=== PATIENT | female | born 1980 | race Hispanic/Latino ===

== ENCOUNTER 2022-03-25 22:26 | Emergency (ER) | payer BC ==
[2022-03-25 23:55] LABS: Absolute Lymphocytes (CBC) 2.8 K/uL (0.7-4.9); Hematocrit 40.5 % (36.0-45.0); Lymphocytes % 21.1 % (15.3-44.8); MCV 85.9 fL (80-100); RBC Red Blood Cell Count 4.72 M/uL (3.86-4.86)
[2022-03-26 00:13] LABS: Albumin 3.6 g/dL (3.4-5.0); Bilirubin Total 0.2 mg/dL (0.2-1.0); Potassium 3.6 mmol/L (3.5-5.1)
[2022-03-26 00:39] LABS: Urine Blood Negative (Negative); Urine Glucose Negative (Negative); Urine Protein Negative (Negative); Urine Specific Gravity 1.015 (1.005-1.030); Urine pH 5.5 (5.0-7.0)
[2022-03-26 00:43] LABS: Urine Specific Gravity/Preg 1.015 (1.005-1.030)
[2022-03-26 01:23] LABS: Urine Bacteria <20 /HPF (<20); Urine RBC <5 /HPF (None Seen)
--- NOTE | 2022-03-26 03:12 | ER ---
Nurse's Notes [facility] Name: Ching Huang Age: 42 yrs Sex: Female : 1980 Arrival Date: 03/25/2022 Time: 22:37 Bed 14 Private MD: Diagnosis: Lower abdominal pain, unspecified;Other bursitis of hip, right hip;Other ovarian cysts-DERMOID RIGHT 3.2 CM Presentation: 03/25 23:13 Chief complaint: Patient states: Pt reports right lower quadrant abdominal pain that bb radiates into right flank with urinary frequency. Coronavirus screen: Vaccine status: Patient reports being unvaccinated. Client denies travel out of the [place] in the last 14 days. Ebola Screen: Patient negative for fever greater than or equal to 101.5 degrees Fahrenheit, and additional compatible Ebola Virus Disease symptoms Patient denies exposure to infectious person. Patient denies travel to an Ebola-affected area in the 21 days before illness onset. Initial Sepsis Screen: Does the patient meet any 2 criteria? No. Patient's initial sepsis screen is negative. Does the patient have a suspected source of infection? No. Patient's initial sepsis screen is negative. Risk Assessment: Do you want to hurt yourself or someone else? Patient reports no desire to harm self or others. Onset of symptoms was March 21, 2022. 23:13 Method Of Arrival: Ambulatory bb 23:13 Acuity: MARIALUISA 3 bb Triage Assessment: 23:15 General: Appears in no apparent distress. Behavior is calm, cooperative. Pain: bb Complains of pain in suprapubic area and right inguinal area Pain radiates to right low back Pain currently is 5 out of 10 on a pain scale. Quality of pain is described as sharp. GI: Reports lower abdominal pain, Patient currently denies constipation, diarrhea, nausea, vomiting. 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 Last tetanus immunization: < 5 years ago. - Social history:: Smoking status: Patient denies any tobacco usage or history of. Screenin/02 01:00 [facility] ED Fall Risk Assessment (Adult) History of falling in the last 3 months, vc1 including since admission No falls in past 3 months (0 pts) Confusion or Disorientation No (0 pts) Intoxicated or Sedated No (0 pts) Impaired Gait No (0 pts) Mobility Assist Device Used No (0 pt) Altered Elimination No (0 pt) Score/Fall Risk Level 0 - 2 = Low Risk Oriented to surroundings, Maintained a safe environment, Educated pt \T\ family on fall prevention, incl call for assistance when getting out of bed. Abuse screen: Denies threats or abuse. Nutritional screening: No deficits noted. Tuberculosis screening: No symptoms or risk factors identified. Assessment: 01:00 Reassessment: No changes from previously documented assessment. Patient and/or family vc1 updated on plan of care and expected duration. Pain level reassessed. 02:00 Reassessment: No changes from previously documented assessment. Patient and/or family vc1 updated on plan of care and expected duration. Pain level reassessed. Patient is alert, oriented x 3, equal unlabored respirations, skin warm/dry/pink. 03:00 Reassessment: No changes from previously documented assessment. Patient and/or family vc1 updated on plan of care and expected duration. Pain level reassessed. Patient is alert, oriented x 3, equal unlabored respirations, skin warm/dry/pink. Vital Signs: 03/25 23:13 BP 142 / 96; Pulse 74; Resp 20; Temp 97.7; Pulse Ox 100% ; Weight 90.72 kg; Height 5 bb ft. 2 in. (157.48 cm); Pain 5/10; 03/26 01:00 BP 118 / 81; Pulse 69; Resp 18; Pulse Ox 100% ; vc1 03:00 BP 126 / 76; Pulse 64; Resp 19; Pulse Ox 100% ; vc1 03/25 23:13 Body Mass Index 36.58 (90.72 kg, 157.48 cm) bb ED Course: 03/25 22:37 Patient arrived in ED. ja2 22:43 [facility]az[facility] Snowden [facility]C [facility]. snw 22:43 Master Funes MD is Attending Physician. snw 23:15 Triage completed. bb 23:15 Arm band placed on left wrist. bb 23:48 Initial lab(s) drawn, by ar, sent to lab. Inserted saline lock: 22 gauge in left mb4 antecubital area, using aseptic technique. Blood collected. 03/26 00:32 Paty Wagner, RN is Primary Nurse. vc1 01:50 CT Abd/Pelvis - IV Contrast Only In Process Unspecified. EDMS 02:00 Patient has correct armband on for positive identification. Bed in low position. Call vc1 light in reach. Pulse ox on. NIBP on. 03:37 No provider procedures requiring assistance completed. IV discontinued, intact, vc1 bleeding controlled, No redness/swelling at site. Pressure dressing applied. Administered Medications: No medications were administered Medication: 03:24 VIS not applicable for this client. vc1 Outcome: 03:12 Discharge ordered by . azeem 03:38 Discharged to home ambulatory. vc1 03:38 Condition: good 03:38 Discharge instructions given to patient, Instructed on discharge instructions, follow up and referral plans. medication usage, Demonstrated understanding of instructions, follow-up care, medications, Prescriptions given X 3. 03:38 Patient left the ED. vc1 Signatures: Dispatcher [employer] EDCT Master Funes MD MD cha Waters, Shelly, LEADERSHIP INTERN-C LEADERSHIP INTERN-Csnw Yadira Gold RN RN Beverly Ferguson 4 Kylee Wren Vanessa, RN RN vc1 Corrections: (The following items were deleted from the chart) 03/25 23:19 23:13 Pulse 74bpm; Resp 20bpm; Pulse Ox 100%; Temp 97.7F; 90.72 kg; Height 5 ft. 2 in.; bb BMI: 36.5; Pain 5/10; bb
--- NOTE | 2022-03-26 03:13 | EDPHYS ---
Physician Documentation [facility] Name: Ching Huang Age: 42 yrs Sex: Female : 1980 Arrival Date: 03/25/2022 Time: 22:37 Bed 14 Private MD: ED Physician Master Funes HPI: 03/26 00:41 This 42 yrs old Female presents to ER via Ambulatory with complaints of snw Abdominal Pain, Low Back Pain. 00:41 The patient presents with abdominal pain right lower quadrant. Onset: The snw symptoms/episode began/occurred acutely, 4 day(s) ago, and became persistent. The symptoms radiate to right back. Associated signs and symptoms: none. The symptoms are described as steady, vague. Severity of pain: At its worst the pain was moderate in the emergency department the pain has improved. The patient has not experienced similar symptoms in the past. over the past 13 weeks pt has had bronchitis twice and asthma exacerbations x 3. 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 Last tetanus immunization: < 5 years ago. - Social history:: Smoking status: Patient denies any tobacco usage or history of. ROS: 03/26 00:39 Constitutional: Negative for fever, chills, and weight loss, Eyes: Negative for injury, snw pain, redness, and discharge, ENT: Negative for injury, pain, and discharge, Neck: Negative for injury, pain, and swelling, Cardiovascular: Negative for chest pain, palpitations, and edema, Respiratory: Negative for shortness of breath, wheezing, and pleuritic chest pain, + dry cough Abdomen/GI: Negative for abdominal pain, nausea, vomiting, diarrhea, and constipation, : Negative for injury, bleeding, discharge, and swelling, +urinary frequency MS/Extremity: Negative for injury and deformity, Skin: Negative for injury, rash, and discoloration, Neuro: Negative for headache, weakness, numbness, tingling, and seizure, Psych: Negative for depression, anxiety, suicide ideation, homicidal ideation, and hallucinations. Abdomen/GI: Positive for abdominal pain. Back: Positive for pain at rest, pain with movement, radiated pain. Exam: 00:38 Constitutional: This is a well developed, well nourished patient who is awake, alert, snw and in no acute distress. Head/Face: Normocephalic, atraumatic. Eyes: Pupils equal round and reactive to light, extra-ocular motions intact. Lids and lashes normal. Conjunctiva and sclera are non-icteric and not injected. Cornea within normal limits. Periorbital areas with no swelling, redness, or edema. ENT: Nares patent. No nasal discharge, no septal abnormalities noted. Tympanic membranes are normal and external auditory canals are clear. Oropharynx with no redness, swelling, or masses, exudates, or evidence of obstruction, uvula midline. Mucous membranes moist. Neck: Trachea midline, no thyromegaly or masses palpated, and no cervical lymphadenopathy. Supple, full range of motion without nuchal rigidity, or vertebral point tenderness. No Meningismus. Chest/axilla: Normal chest wall appearance and motion. Nontender with no deformity. No lesions are appreciated. Cardiovascular: Regular rate and rhythm with a normal S1 and S2. No gallops, murmurs, or rubs. Normal PMI, no JVD. No pulse deficits. Respiratory: Lungs have equal breath sounds bilaterally, clear to auscultation and percussion. No rales, rhonchi or wheezes noted. No increased work of breathing, no retractions or nasal flaring. + dry cough Abdomen/GI: Soft, mildly tender to right inguinal canal, with normal bowel sounds. No distension or tympany. No guarding or rebound. Back: No spinal tenderness. No costovertebral tenderness. Full range of motion. Skin: Warm, dry with normal turgor. Normal color with no rashes, no lesions, and no evidence of cellulitis. MS/ Extremity: Pulses equal, no cyanosis. Neurovascular intact. Full, normal range of motion. Neuro: Awake and alert, GCS 15, oriented to person, place, time, and situation. Cranial nerves II-XII grossly intact. Motor strength 5/5 in all extremities. Sensory grossly intact. Cerebellar exam normal. Normal gait. Psych: Awake, alert, with orientation to person, place and time. Behavior, mood, and affect are within normal limits. Vital Signs: 03/25 23:13 BP 142 / 96; Pulse 74; Resp 20; Temp 97.7; Pulse Ox 100% ; Weight 90.72 kg; Height 5 bb ft. 2 in. (157.48 cm); Pain 5/10; 03/26 01:00 BP 118 / 81; Pulse 69; Resp 18; Pulse Ox 100% ; vc1 03:00 BP 126 / 76; Pulse 64; Resp 19; Pulse Ox 100% ; vc1 03/25 23:13 Body Mass Index 36.58 (90.72 kg, 157.48 cm) bb MDM: 03/25 23:32 Patient medically screened. azeem 03/26 01:28 Differential diagnosis: appendicitis, Inguinal hernia, bursitis of right hip. snw Transition of care: After a detail discussion of the patient's case, care is transferred to Master Funes MD. 03/25 22:44 Order name: CBC with Diff; Complete Time: 00:05 snw 03/25 22:44 Order name: CMP; Complete Time: 00:15 snw 03/25 22:44 Order name: Lipase; Complete Time: 00:15 snw 03/25 22:44 Order name: Urine Microscopic Only; Complete Time: 01:27 snw 03/26 00:39 Order name: Urine Dipstick-Ancillary; Complete Time: 00:42 EDMS 03/26 00:40 Order name: Urine --Ancillary (enter results); Complete Time: 00:51 ds4 03/25 22:44 Order name: IV Saline Lock; Complete Time: 00:32 snw 03/25 22:44 Order name: Labs collected and sent; Complete Time: 00:32 snw 03/25 22:44 Order name: Urine Dipstick-Ancillary (obtain specimen); Complete Time: 00:40 snw 03/26 00:06 Order name: CT Abd/Pelvis - IV Contrast Only snw 03/26 00:06 Order name: Urine Test (obtain specimen); Complete Time: 00:40 snw Administered Medications: No medications were administered Disposition Summary: 03/26/22 03:12 Discharge Ordered Location: Home azeem Condition: Stable azeem Diagnosis - Lower abdominal pain, unspecified azeem - Other bursitis of hip, right hip azeem - Other ovarian cysts - DERMOID RIGHT 3.2 CM azeem Followup: snw - With: Emergency Department - When: As needed - Reason: Worsening of condition Followup: snw - With: Private Physician - When: 2 - 3 days - Reason: Recheck today's complaints, Continuance of care, Re-evaluation by your physician Discharge Instructions: - Ovarian Cyst azeem - Ovarian Cyst, [id number] azeem - Discharge Summary Sheet snw - Abdominal Pain, Adult snw - Bursitis snw - Gas and Gas Pains, Pediatric snw Forms: - Medication Reconciliation Form [facility] - Thank You Letter azeem - Antibiotic Education azeem - Prescription Opioid Use [facility] Prescriptions: - Mobic 7.5 mg Oral Tablet - take 1 tablet by ORAL route once daily take with food; 20 tablet; Refills: 0, snw Product Selection Permitted - orphenadrine citrate 100 mg Oral Tablet Sustained Release - take 1 tablet by ORAL route 2 times per day As needed; 20 tablet; Refills: 0, snw Product Selection Permitted - Tylenol-Codeine #3 300 mg-30 mg Oral - take 2 tablet by ORAL route every 6 hours; 15 tablet; Refills: 0, Product azeem Selection Permitted Signatures: Dispatcher [employer] Master Vallecillo MD MD cha Waters, Shelly, BURIAL AGENT-C BURIAL AGENT-Rejiw Yadira Gold, RN RN bb
[2022-03-26 03:42] VITALS: TEMP 97.7; O2SAT 100
[2022-03-26 03:44] VITALS: BP 126/76
--- NOTE | 2022-03-26 13:36 | RAD REPORT ---
EXAM DESCRIPTION: CT - Abdomen Pelvis W Contrast - 03/26/2022 6:39 am CLINICAL HISTORY: The patient is 42 years old and is Female; RLQ abdominal pain TECHNIQUE: Axial computed tomography images of the abdomen and pelvis with intravenous contrast. S agittal and coronal reformatted images were created and reviewed. This CT exam was performed using one or more of the following dose reduction techniques: automated exposure control, adjustment of t he mA and/or kV according to patient size, and/or use of iterative reconstruction technique. COMPARISON: No relevant prior studies available. FINDINGS: Lung bases: Calcified granuloma in the left lung base. ABDOMEN: Liver: Small 1 cm fat density lesion in the upper right liver. Gallbladder and bile ducts: Unremarkable. No calcified stones. No ductal dilation. Pancreas: Unremarkable. No mass. No ductal dilation. Spleen: Unremarkable. No splenomegaly. Adrenals: Unremarkable. No mass. Kidneys and ureters: Unremarkable. No solid mass. No hydronephrosis. Stomach and bowel: Scattered colonic diverticula. No obstruction. No mucosal thickening. PELVIS: Appendix: The appendix is normal. Bladder: Unremarkable. Reproductive: Well-circumscribed 3.2 cm fat density lesion in the right ovary which is nonspecif ic but may represent a dermoid cyst. ABDOMEN and PELVIS: Intraperitoneal space: Unremarkable. No free air. No significant fluid collection. Bones/joints: No acute fracture. No dislocation. Soft tissues: Unremarkable. Vasculature: Unremarkable. No abdominal aortic aneurysm. Lymph nodes: Unremarkable. No enlarged lymph nodes. IMPRESSION: 1. Well-circumscribed 3.2 cm fat density lesion in the right ovary which is nonspecifi c but may represent a dermoid cyst. 2. The appendix is normal. Electronically signed by: Figueroa Gabriel MD 03/26/2022 3:[address] [facility] Due to temporary technical issues with the PACS/Fluency reporting system, reports are being signed by the in house radiologists without review as a courtesy to insure prompt reporting. The interpreting radiologist is fully responsible for the content of the report.
== END 2022-03-26 03:38 | disposition home or self-care (01) ==
LOC: ER 22:26
DX: D27.0 Benign neoplasm of right ovary (principal); M71.551 Other bursitis, not elsewhere classified, right hip
CPT/HCPCS: 85025; 36415; 81025; 83690; 80053; 74177; Q9967; 81003; 81015; 99284

== ENCOUNTER 2022-08-23 21:04 | Emergency (ER) | payer BC ==
[2022-08-24] MEDS ORDERED: KETOROLAC 30 MG/ML INJ ONE (00:13)
[2022-08-24 00:19] LABS: Absolute Lymphocytes (CBC) 1.9 K/uL (0.7-4.9); Hematocrit 39.2 % (36.0-45.0); Lymphocytes % 11.7 % (15.3-44.8); MCV 87.2 fL (80-100); MPV 9.1 fL (7.6-11.3)
[2022-08-24 00:40] LABS: Albumin 3.2 g/dL (3.4-5.0); Bilirubin Total 0.3 mg/dL (0.2-1.0); Potassium 3.5 mEq/L (3.5-5.1); Protein, Total 7.1 g/dL (6.4-8.2)
[2022-08-24] MEDS ORDERED: NA CHLORIDE 0.9% 1,000 ML ONE ×2 (01:27→02:46)
[2022-08-24 01:46] LABS: Specific Gravity 1.021 (1.005-1.030); Urine Bacteria None Seen /HPF (<20); Urine Bilirubin NEGATIVE (Negative); Urine Blood Negative (Negative); Urine Clarity Clear (Clear); Urine Color Light-Yellow (Yellow); Urine Glucose NEGATIVE (Negative); Urine Mucus Slight /HPF (None Seen); Urine Protein NEGATIVE (Negative); Urine RBC None Seen /HPF (None Seen); Urine Urobilinogen Normal (Normal)
[2022-08-24] MEDS ORDERED: NA CHLORIDE 0.9% 100 ML ONE (02:46)
[2022-08-24] MEDS ORDERED: PIPERACIL/TAZO 3.375 GM VIAL IV ONE (02:46)
--- NOTE | 2022-08-24 03:11 | ER ---
Nurse's Notes [facility] Name: Ching Huang Age: 42 yrs Sex: Female : 1980 Arrival Date: 08/23/2022 Time: 21:04 Bed 8 Private MD: Diagnosis: Diverticulitis of large intestine without perforation or abscess without bleeding;Abdominal tenderness;Elevated white blood cell count Presentation: 08/23 21:39 Chief complaint: Patient states: low pelvic pain and into my back. intense cramps lg3 making me feel like i have to have a bowel movement since this morning. Coronavirus screen: Client denies travel out of the [place] in the last 14 days. At this time, the client does not indicate any symptoms associated with coronavirus-19. Ebola Screen: No symptoms or risks identified at this time. Initial Sepsis Screen: Does the patient meet any 2 criteria? No. Patient's initial sepsis screen is negative. Does the patient have a suspected source of infection? No. Patient's initial sepsis screen is negative. Risk Assessment: Do you want to hurt yourself or someone else? Patient reports no desire to harm self or others. Onset of symptoms was August 23, 2022. 21:39 Method Of Arrival: Ambulatory lg3 21:39 Acuity: MARIALUISA 3 lg3 Triage Assessment: 21:41 General: Appears in no apparent distress. comfortable, Behavior is calm, cooperative. lg3 Pain: Complains of pain in pelvis. EENT: No deficits noted. No signs and/or symptoms were reported regarding the EENT system. Neuro: No deficits noted. Edge Agitation-Sedation Scale (RASS): 0 - Alert and Calm Level of Consciousness is awake, alert, obeys commands, Oriented to person, place, time, situation. Cardiovascular: No deficits noted. Denies chest pain, shortness of breath. Respiratory: No deficits noted. Airway is patent Respiratory effort is even, unlabored, Respiratory pattern is regular, symmetrical. GI: No deficits noted. Abdomen is round non-distended, obese, Reports lower abdominal pain, cramping. : No deficits noted. No signs and/or symptoms were reported regarding the genitourinary system. Derm: No deficits noted. No signs and/or symptoms reported regarding the dermatologic system. Skin is intact, is healthy with good turgor, Skin is dry, Skin is normal, Skin temperature is warm. Musculoskeletal: No deficits noted. No signs and/or symptoms reported regarding the musculoskeletal system. Circulation, motion, and sensation intact. Range of motion: intact in all extremities. 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 - Social history:: Smoking status: Patient denies any tobacco usage or history of. Patient/guardian denies using alcohol, street drugs. Screenin/02 04:30 [facility] ED Fall Risk Assessment (Adult) History of falling in the last 3 months, jb4 including since admission No falls in past 3 months (0 pts) Confusion or Disorientation No (0 pts) Score/Fall Risk Level 0 - 2 = Low Risk Oriented to surroundings, Maintained a safe environment. Abuse screen: Denies threats or abuse. Nutritional screening: No deficits noted. Tuberculosis screening: No symptoms or risk factors identified. Assessment: 01:05 Reassessment: Patient appears in no apparent distress at this time. Patient and/or jb4 family updated on plan of care and expected duration. Pain level reassessed. Patient is alert, oriented x 3, equal unlabored respirations, skin warm/dry/pink. Pt ambulated to restroom to give urine sample with steady gait. 02:00 Reassessment: Patient appears in no apparent distress at this time. Patient and/or jb4 family updated on plan of care and expected duration. Pain level reassessed. Patient is alert, oriented x 3, equal unlabored respirations, skin warm/dry/pink. 03:01 Reassessment: Patient appears in no apparent distress at this time. Patient and/or jb4 family updated on plan of care and expected duration. Pain level reassessed. Patient is alert, oriented x 3, equal unlabored respirations, skin warm/dry/pink. 04:00 Reassessment: Patient appears in no apparent distress at this time. Patient and/or jb4 family updated on plan of care and expected duration. Pain level reassessed. Patient is alert, oriented x 3, equal unlabored respirations, skin warm/dry/pink. 05:06 Reassessment: Patient appears in no apparent distress at this time. Patient and/or jb4 family updated on plan of care and expected duration. Pain level reassessed. Patient is alert, oriented x 3, equal unlabored respirations, skin warm/dry/pink. Pt verbalized understanding of d/c and follow up instructions. Vital Signs: 08/23 21:39 BP 162 / 105; Pulse 75; Resp 16 S; Temp 99.1(O); Pulse Ox 100% on R/A; Weight 88.45 kg lg3 (R); Height 5 ft. 2 in. (R); 08/24 01:00 BP 134 / 92; Pulse 70; Resp 16; Pulse Ox 99% on R/A; jb4 02:00 BP 126 / 80; Pulse 71; Resp 16; Pulse Ox 99% on R/A; jb4 03:00 BP 156 / 93; Pulse 67; Resp 16; Pulse Ox 100% on R/A; jb4 04:30 BP 144 / 90; Pulse 72; Resp 16; Pulse Ox 96% on R/A; jb4 08/23 21:39 Body Mass Index 35.67 (88.45 kg, 157.48 cm) lg3 ED Course: 08/23 21:07 Patient arrived in ED. ag3 21:26 Master Dee PA is PHCP. cp 21:26 Master Funes MD is Attending Physician. cp 21:41 Triage completed. lg3 21:41 Arm band placed on right wrist. lg3 23:49 Cuong Calles, SHERYL is Primary Nurse. rv 08/24 00:08 CBC with Diff Sent. rv 00:08 CMP Sent. rv 00:08 Lipase Sent. rv 00:08 Inserted saline lock: 20 gauge in right forearm, using aseptic technique. Blood rv collected. 01:00 Patient has correct armband on for positive identification. Bed in low position. Call jb4 light in reach. Side rails up X 1. Client placed on continuous cardiac and pulse oximetry monitoring. NIBP monitoring applied. 02:33 CT Abd/Pelvis - IV Contrast Only In Process Unspecified. EDMS 03:10 Boone Nascimento MD is Referral Physician. azeem 05:08 No provider procedures requiring assistance completed. IV discontinued, intact, jb4 bleeding controlled, No redness/swelling at site. Pressure dressing applied. Administered Medications: 03:08 Discontinued: Piperacillin-Tazobactam IVPB 3.375 grams IVPB once over 60 mins; (mix in azeem NS 100 mL) 00:07 Drug: TORadol - Ketorolac IVP 15 mg Route: IVP; Site: right forearm; rv 01:28 Drug: NS 0.9% IV 1000 ml Route: IV; Rate: 1 bolus; Site: left antecubital; jb4 02:57 Drug: Piperacillin-Tazobactam IVPB 3.375 grams Route: IVPB; Infused Over: 60 mins; jb4 Site: left forearm; 02:57 Drug: NS 0.9% IV 1000 ml Route: IV; Rate: 125 ml/hr; Site: left forearm; jb4 03:11 Not Given (Patient Refused): morphine IVP or IV 4 mg IVP once over 4 mins jb4 03:11 Not Given (Patient Refused): Ondansetron IVP 4 mg IVP once; over 2 minutes jb4 03:25 Drug: Rocephin IV 2 grams Route: IV; Rate: per protocol; Site: left femoral; jb4 03:30 Follow up: Response: No adverse reaction; IV Status: Completed infusion; IV Intake: [id number] 03:34 Drug: metroNIDAZOLE IVPB 500 mg Volume: 100 ml; Route: IVPB; Rate: 200 ml/hr; Infused jb4 Over: 30 mins; Site: left forearm; 04:05 Follow up: Response: No adverse reaction; IV Status: Completed infusion; IV Intake: jb4 100ml 04:05 Drug: Ciprofloxacin IVPB 400 mg Volume: 200 ml; Route: IVPB; Infused Over: 60 mins; jb4 Site: left forearm; Intake: 03:30 IV: 50ml; Total: 50ml. jb4 04:05 IV: 100ml; Total: 150ml. jb4 Outcome: 03:11 Discharge ordered by MD. gann 05:08 Discharged to home ambulatory. jb4 05:08 Condition: stable 05:08 Discharge instructions given to patient, Instructed on discharge instructions, follow up and referral plans. medication usage, Demonstrated understanding of instructions, follow-up care, medications, Prescriptions given X 5 05:08 Patient left the ED. jb4 Signatures: Dispatcher [employer] Master Vallecillo MD MD cha Page, Corey, PA PA cp Bryson, James RN RN jb4 Cuong Calles, RN RN Karey Jean Baptiste 3 Brenda Mcmahon RN RN lg3
--- NOTE | 2022-08-24 03:12 | EDPHYS ---
Physician Documentation [facility] Name: Ching Huang Age: 42 yrs Sex: Female : 1980 Arrival Date: 08/23/2022 Time: 21:04 Bed 8 Private MD: KAYY Physician Master Funes HPI: 08/23 22:35 This 42 yrs old Female presents to ER via Ambulatory with complaints of Low cp Back Pain. 22:35 The patient presents with pain that is acute, with no known mechanism of injury. The cp symptoms are located in the left low back. The pain radiates to the lower abdomen. 22:35 Onset: The symptoms/episode began/occurred this morning. Associated signs and symptoms: cp Pertinent positives: loose stools, Pertinent negatives: blood in stools, vomiting. The symptoms are described as constant. Modifying factors: the symptoms are aggravated by movement, pressure. 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 - Social history:: Smoking status: Patient denies any tobacco usage or history of. Patient/guardian denies using alcohol, street drugs. ROS: 22:40 Constitutional: Negative for body aches, chills, fever, poor PO intake. cp 22:40 Eyes: Negative for injury, pain, redness, and discharge. cp 22:40 Cardiovascular: Negative for chest pain, edema, palpitations. 22:40 Respiratory: Negative for cough, shortness of breath, wheezing. 22:40 Abdomen/GI: Positive for abdominal pain, of the left lower abdomen and left adnexa, Negative for vomiting, diarrhea, constipation, anorexia. 22:40 Back: Positive for pain at rest, pain with movement, of the left low back. cp 22:40 : Negative for urinary symptoms, hematuria, vaginal bleeding, vaginal discharge. 22:40 Neuro: Negative for altered mental status, dizziness, headache, weakness. 22:40 All other systems are negative. cp Exam: 22:45 Constitutional: The patient appears in no acute distress, alert, awake, non-toxic, well cp developed, well nourished. 22:45 Head/Face: Normocephalic, atraumatic. cp 22:45 Eyes: Periorbital structures: appear normal, Conjunctiva: normal, no exudate, no injection, Sclera: no appreciated abnormality, Lids and lashes: appear normal, bilaterally. 22:45 ENT: External ear(s): are unremarkable, Nose: is normal, Mouth: Lips: moist, Oral mucosa: pink and intact, moist, Posterior pharynx: is normal, airway is patent, no erythema, no exudate. 22:45 Chest/axilla: Inspection: normal, Palpation: is normal, no crepitus, no tenderness. 22:45 Cardiovascular: Rate: normal, Rhythm: regular. 22:45 Respiratory: the patient does not display signs of respiratory distress, Respirations: normal, no use of accessory muscles, no retractions, labored breathing, is not present, Breath sounds: are clear throughout, no decreased breath sounds, no stridor, no wheezing. 22:45 Abdomen/GI: Inspection: abdomen appears normal, Bowel sounds: active, all quadrants, Palpation: soft, in all quadrants, moderate abdominal tenderness, in the left lower quadrant and left adnexa, rebound tenderness, is not appreciated, involuntary guarding, is not appreciated. 22:45 Back: pain, of the left low back, ROM is normal. 22:45 Neuro: Orientation: is normal, Mentation: is normal, Motor: moves all fours, strength is normal, Gait: is steady, at a normal pace, without difficulty. Vital Signs: 21:39 BP 162 / 105; Pulse 75; Resp 16 S; Temp 99.1(O); Pulse Ox 100% on R/A; Weight 88.45 kg lg3 (R); Height 5 ft. 2 in. (R); 08/24 01:00 BP 134 / 92; Pulse 70; Resp 16; Pulse Ox 99% on R/A; jb4 02:00 BP 126 / 80; Pulse 71; Resp 16; Pulse Ox 99% on R/A; jb4 03:00 BP 156 / 93; Pulse 67; Resp 16; Pulse Ox 100% on R/A; jb4 04:30 BP 144 / 90; Pulse 72; Resp 16; Pulse Ox 96% on R/A; jb4 08/23 21:39 Body Mass Index 35.67 (88.45 kg, 157.48 cm) lg3 MDM: 08/23 21:45 Patient medically screened. 08/24 00:00 Differential diagnosis: sciatica, bowel obstruction, diverticulitis, Pyelonephritis, cp Ureterolithiasis, urinary tract infection. 02:15 Data reviewed: vital signs, nurses notes, lab test result(s). 02:15 Awaiting: CT scan results. Transition of care: After a detail discussion of the cp patient's case, care is transferred to Master Funes MD. 08/23 22:28 Order name: CBC with Diff; Complete Time: 01:07 08/24 01:07 Interpretation: Normal except: WBC 16.50; NEIL% 80.0; LYM% 11.7; NEUT A 13.2. 08/23 22:28 Order name: CMP; Complete Time: 01:07 08/24 01:08 Interpretation: Normal except: CL 108; CA 8.3; ALB 3.2; GLOB 3.9; A/G 0.8. 08/23 22:28 Order name: Lipase; Complete Time: 01:07 08/24 01:08 Interpretation: Reviewed. 08/23 22:28 Order name: Test, Urine; Complete Time: 01:57 08/24 01:58 Interpretation: Reviewed. 08/23 22:28 Order name: Urinalysis w/ reflexes; Complete Time: 01:57 08/24 01:58 Interpretation: Reviewed. 08/23 22:28 Order name: CT Abd/Pelvis - IV Contrast Only 08/23 22:28 Order name: IV Saline Lock; Complete Time: 00:07 08/23 22:28 Order name: Labs collected and sent; Complete Time: 00:07 Administered Medications: 03:08 Discontinued: Piperacillin-Tazobactam IVPB 3.375 grams IVPB once over 60 mins; (mix in azeem NS 100 mL) 00:07 Drug: TORadol - Ketorolac IVP 15 mg Route: IVP; Site: right forearm; rv 01:28 Drug: NS 0.9% IV 1000 ml Route: IV; Rate: 1 bolus; Site: left antecubital; jb4 02:57 Drug: Piperacillin-Tazobactam IVPB 3.375 grams Route: IVPB; Infused Over: 60 mins; jb4 Site: left forearm; 02:57 Drug: NS 0.9% IV 1000 ml Route: IV; Rate: 125 ml/hr; Site: left forearm; jb4 03:11 Not Given (Patient Refused): morphine IVP or IV 4 mg IVP once over 4 mins jb4 03:11 Not Given (Patient Refused): Ondansetron IVP 4 mg IVP once; over 2 minutes jb4 03:25 Drug: Rocephin IV 2 grams Route: IV; Rate: per protocol; Site: left femoral; jb4 03:30 Follow up: Response: No adverse reaction; IV Status: Completed infusion; IV Intake: [id number] 03:34 Drug: metroNIDAZOLE IVPB 500 mg Volume: 100 ml; Route: IVPB; Rate: 200 ml/hr; Infused jb4 Over: 30 mins; Site: left forearm; 04:05 Follow up: Response: No adverse reaction; IV Status: Completed infusion; IV Intake: jb4 100ml 04:05 Drug: Ciprofloxacin IVPB 400 mg Volume: 200 ml; Route: IVPB; Infused Over: 60 mins; jb4 Site: left forearm; Disposition Summary: 08/24/22 03:11 Discharge Ordered Location: Home azeem Problem: new azeem Symptoms: have improved azeem Condition: Stable azeem Diagnosis - Diverticulitis of large intestine without perforation or abscess without bleeding azeem - Abdominal tenderness azeem - Elevated white blood cell count azeem Followup: azeem - With: Private Physician - When: 2 - 3 days - Reason: Recheck today's complaints, Continuance of care, Re-evaluation by your physician Followup: azeem - With: Boone Nascimento MD - When: 2 - 3 days - Reason: Recheck today's complaints, Re-evaluation by your physician Discharge Instructions: - Discharge Summary Sheet azeem - Abdominal Pain, Adult azeem - Diverticulitis azeem - Diverticulitis, [id number] azeem - Abdominal Pain, Adult, [id number] azeem Forms: - Medication Reconciliation Form azeem - Thank You Letter azeem - Antibiotic Education azeem - Prescription Opioid Use azeem Prescriptions: - Cipro 500 mg Oral Tablet - take 1 tablet by ORAL route every 12 hours for 10 days; 20 tablet; Refills: 0, azeem Product Selection Permitted - Colace 100 mg Oral Tablet - take 1 tablet by ORAL route every 12 hours; 14 tablet; Refills: 0, Product azeem Selection Permitted - Flagyl 500 mg Oral Tablet - take 1 tablet by ORAL route every 6 hours for 10 days; 40 tablet; Refills: 0, [facility] Product Selection Permitted - Zofran 4 mg Oral Tablet - take 1 tablet by ORAL route every 12 hours As needed; 20 tablet; Refills: 0, [facility] Product Selection Permitted - dicyclomine 20 mg Oral Tablet - take 1 tablet by ORAL route 4 times per day; 28 tablet; Refills: 0, Product azeem Selection Permitted Signatures: Dispatcher [employer] EDMaster Evans MD MD cha Page, Corey, PA PA cp Bryson, James RN RN jb4 Cuong Calles RN RN Brenda Krueger RN RN lg3
[2022-08-24] MEDS ORDERED: CEFTRIAXONE 2000 MG/VIAL ONE (03:24)
[2022-08-24] MEDS ORDERED: CIPROFLOXACIN 400mg IV 400 MG/200 ML BAG IV ONE (03:25)
[2022-08-24] MEDS ORDERED: METRONIDAZOLE 500mg IVPB 500 MG/100 ML BAG IV ONE (03:25)
[2022-08-24] MEDS ORDERED: NA CHLORIDE 0.9% 50 ML ONE (03:27)
[2022-08-24 05:41] VITALS: TEMP 99.1
[2022-08-24 05:52] VITALS: BP 144/90; O2SAT 96
--- NOTE | 2022-08-24 13:45 | RAD REPORT ---
EXAM DESCRIPTION: CT - Abdomen Pelvis W Contrast - 08/24/2022 3:08 am CLINICAL HISTORY: The patient is 42 years old and is Female; left lower abdomen/left low back pain TECHNIQUE: Axial computed tomography images of the abdomen and pelvis with intravenous contrast. S agittal and coronal reformatted images were created and reviewed. This CT exam was performed using one or more of the following dose reduction techniques: automated exposure control, adjustment of t he mA and/or kV according to patient size, and/or use of iterative reconstruction technique. COMPARISON: March 25, 2022. FINDINGS: Lung bases: Left hilar calcification. Calcified granuloma in the left lung base. ABDOMEN: Liver: 1 cm fat density lesion in the right liver. Gallbladder and bile ducts: Cholelithiasis. No ductal dilation. Pancreas: Unremarkable. No mass. No ductal dilation. Spleen: Unremarkable. No splenomegaly. Adrenals: Unremarkable. No mass. Kidneys and ureters: Nonobstructing calcification in the left kidney. Stomach and bowel: Peridiverticular stranding in the left lower quadrant suggestive of diverticul itis. No free air. No abscess. Scattered colonic diverticula. No obstruction. PELVIS: Appendix: The appendix is normal. Bladder: Unremarkable. Reproductive: Stable 3.2 cm fat density lesion in the right ovary which may represent a dermoid c yst. ABDOMEN and PELVIS: Intraperitoneal space: See above. Bones/joints: No acute fracture. No dislocation. Soft tissues: Unremarkable. Vasculature: Unremarkable. No abdominal aortic aneurysm. Lymph nodes: Unremarkable. No enlarged lymph nodes. IMPRESSION: Peridiverticular stranding in the left lower quadrant suggestive of diverticulitis. No f ree air. No abscess. Electronically signed by: Figueroa Gabriel MD 08/24/2022 2:59 AM CDT Due to temporary technical issues with the PACS/Fluency reporting system, reports are being signed by the in house radiologist without review as a courtesy to ensure prompt reporting. The interpreting r adiologist is fully responsible for the content of the report.
== END 2022-08-24 05:08 | disposition home or self-care (01) ==
LOC: ER 21:04
DX: K57.32 Diverticulitis of large intestine without perforation or abscess without bleeding (principal); D72.829 Elevated white blood cell count, unspecified
CPT/HCPCS: 85025; 81001; 36415; 81025; 83690; 80053; 74177; 99284; Q9967; J2543; J0696; J0744; J7030 ×2

== ENCOUNTER → 2023-05-14 | Emergency (ER) | payer BC ==
[~2023-05-14] MED LIST: NA CHLORIDE 0.9% 1,000 ML ONE
[2023-05-14 13:26] LABS: Absolute Lymphocytes (CBC) 1.2 K/uL (0.7-4.9); Hematocrit 44.7 % (36.0-45.0); Lymphocytes % 10.5 % (15.3-44.8); MCV 87.3 fL (80-100); MPV 8.9 fL (7.6-11.3); Platelets 272 thou/uL (152-406); RBC Red Blood Cell Count 5.12 M/uL (3.86-4.86)
[2023-05-14 13:47] LABS: Albumin 3.9 g/dL (3.4-5.0); Bilirubin Total 0.6 mg/dL (0.2-1.0); Magnesium 2.2 mg/dL (1.6-2.4); Potassium 3.6 mEq/L (3.5-5.1); Protein, Total 7.9 g/dL (6.4-8.2); Troponin High Sensitivity 3.4 pg/mL (<58.9)
--- NOTE | 2023-05-14 14:14 | RAD REPORT ---
EXAM DESCRIPTION: Hayden Single View05/14/2023 1:51 pm CLINICAL HISTORY: Chest pain COMPARISON: 2009 FINDINGS: The lungs appear clear of acute infiltrate. The heart is normal size IMPRESSION: No acute abnormalities displayed
--- NOTE | 2023-05-14 15:40 | ER ---
Nurse's Notes [facility] Name: Ching Huang Age: 43 yrs Sex: Female : 1980 Arrival Date: 05/14/2023 Time: 12:42 Bed 17 Private MD: Sima Childers Diagnosis: Chest pain, unspecified Presentation: 05/14 12:49 Chief complaint: Patient states: CHEST PAIN, PALPITATIONS AND SHARP PAIN STARTED 45 MIN db AGO GRADUALLY GETTING WORSE. APPEARS ANXIOUS. STATES HAS BEEN WORRIED ABOUT STI LAB RESULTS. Coronavirus screen: Vaccine status: Patient reports being unvaccinated. Client denies travel out of the [place] in the last 14 days. At this time, the client does not indicate any symptoms associated with coronavirus-19. Ebola Screen: Patient negative for fever greater than or equal to 101.5 degrees Fahrenheit, and additional compatible Ebola Virus Disease symptoms Patient denies exposure to infectious person. Patient denies travel to an Ebola-affected area in the 21 days before illness onset. No symptoms or risks identified at this time. Initial Sepsis Screen: Does the patient meet any 2 criteria? No. Patient's initial sepsis screen is negative. Does the patient have a suspected source of infection? No. Patient's initial sepsis screen is negative. Risk Assessment: Do you want to hurt yourself or someone else? Patient reports no desire to harm self or others. Onset of symptoms was May 14, 2023 at 12:00. 12:49 Method Of Arrival: Ambulatory db 12:49 Acuity: MARIALUISA 2 db Triage Assessment: 12:51 General: Appears in no apparent distress. uncomfortable, Behavior is cooperative, db anxious. Pain: Complains of pain in chest. Neuro: Level of Consciousness is awake, alert, obeys commands, Oriented to person, place, time, situation. Cardiovascular: Capillary refill < 3 seconds Patient's skin is warm and dry. Respiratory: Airway is patent Respiratory effort is even, unlabored, Respiratory pattern is regular, symmetrical. 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 - Social history:: Smoking status: Patient denies any tobacco usage or history of. Screenin:18 [facility] ED Fall Risk Assessment (Adult) History of falling in the last 3 months, mb9 including since admission No falls in past 3 months (0 pts) Confusion or Disorientation No (0 pts) Intoxicated or Sedated No (0 pts) Impaired Gait No (0 pts) Mobility Assist Device Used No (0 pt) Altered Elimination No (0 pt) Score/Fall Risk Level 0 - 2 = Low Risk Oriented to surroundings, Maintained a safe environment, Educated pt \T\ family on fall prevention, incl call for assistance when getting out of bed. Abuse screen: Denies threats or abuse. Nutritional screening: No deficits noted. Tuberculosis screening: No symptoms or risk factors identified. Assessment: 13:17 General: Appears in no apparent distress. Behavior is calm, cooperative. Pain: mb9 Complains of pain in chest Pain does not radiate. Pain currently is 8 out of 10 on a pain scale. Quality of pain is described as throbbing, Pain began suddenly, Is continuous. Neuro: Edge Agitation-Sedation Scale (RASS): 0 - Alert and Calm Level of Consciousness is awake, alert, obeys commands, Oriented to person, place, time, situation, Appropriate for age. Cardiovascular: Reports chest pain, shortness of breath, Heart tones S1 S2 present Patient's skin is warm and dry. Cardiovascular: Pulses are all present. Respiratory: Reports shortness of breath at rest Breath sounds are clear bilaterally. GI: Abdomen is round non-distended, Bowel sounds present X 4 quads. Abd is soft and non tender X 4 quads. Reports nausea. : No signs and/or symptoms were reported regarding the genitourinary system. EENT: No signs and/or symptoms were reported regarding the EENT system. Derm: Skin is pink, warm \T\ dry. Musculoskeletal: Range of motion: intact in all extremities. 14:15 Reassessment: No changes from previously documented assessment. Patient and/or family mb9 updated on plan of care and expected duration. Pain level reassessed. Patient is alert, oriented x 3, equal unlabored respirations, skin warm/dry/pink. 15:10 Reassessment: No changes from previously documented assessment. Patient and/or family mb9 updated on plan of care and expected duration. Pain level reassessed. Patient is alert, oriented x 3, equal unlabored respirations, skin warm/dry/pink. Vital Signs: 12:49 BP 133 / 97; Pulse 87; Resp 18; Temp 98.8(O); Pulse Ox 99% ; Weight 86.18 kg; Height 5 db ft. 2 in. ; 14:15 BP 144 / 89; Pulse 76; Resp 18; Pulse Ox 100% on R/A; mb9 15:10 BP 147 / 94; Pulse 76; Resp 18; Pulse Ox 100% on R/A; mb9 12:49 Body Mass Index 34.75 (86.18 kg, 157.48 cm) db ED Course: 12:44 Patient arrived in ED. mr 12:44 LisethSima Lloyd is Private Physician. mr 12:51 Triage completed. db 12:51 Arm band placed on Patient placed in an exam room. db 12:54 Alicja Varma RN is Primary Nurse. mb9 12:55 Hawa Chun FNP-C is PHCP. kb 12:55 Magdi Stein DO is Attending Physician. kb 13:12 EKG done, by ED staff, reviewed by Hawa ROSALES. Inserted saline lock: 20 mb9 gauge in left antecubital area, using aseptic technique. 13:17 CBC with Diff Sent. mb9 13:17 D-Dimer Sent. mb9 13:17 Magnesium Sent. mb9 13:17 Troponin HS Sent. mb9 13:18 Placed in gown. Bed in low position. Call light in reach. Side rails up X 1. Client mb9 placed on continuous cardiac and pulse oximetry monitoring. NIBP monitoring applied. ware tester on. 13:19 No provider procedures requiring assistance completed. Patient maintains SpO2 mb9 saturation greater than 95% on room air. 13:53 XRAY Chest (1 view) In Process Unspecified. EDMS 15:10 Troponin High Sensitivity Sent. mb9 15:43 IV discontinued, intact, bleeding controlled, No redness/swelling at site. Pressure mb9 dressing applied. Administered Medications: 13:33 Drug: NS 0.9% IV 1000 ml IV at 1000 ml once Route: IV; Rate: 1000 ml; Site: left mb9 antecubital; 15:10 Follow up: Response: No adverse reaction; IV Status: Completed infusion mb9 Medication: 13:19 VIS not applicable for this client. mb9 Outcome: 15:40 Discharge ordered by MD. ayala 15:44 Discharged to home ambulatory, mb9 15:44 Condition: stable 15:44 Discharge instructions given to patient, Instructed on discharge instructions, follow up and referral plans. Demonstrated understanding of instructions, follow-up care, 15:50 Patient left the ED. mb9 Signatures: Dispatcher [employer] EDVT Hawa Chun, CONCRETE BATCH PLANT OPERATOR-C CONCRETE BATCH PLANT OPERATOR-Alicja Aguilar, Reg Reg mr Loraine Patino, RN RN Alicja White, RN RN mb9
--- NOTE | 2023-05-14 15:40 | EDPHYS ---
Physician Documentation [facility] Name: Ching Huang Age: 43 yrs Sex: Female : 1980 Arrival Date: 05/14/2023 Time: 12:42 Bed 17 Private MD: Sima Childers ED Physician Magdi Stein HPI: 05/14 13:30 This 43 yrs old Female presents to ER via Ambulatory with complaints of Chest kb Pain. 13:39 Patient is a 43-year-old female who presents for chest pain to left side of her chest kb that started yesterday and has been intermittent. States today that has been worse and she has had palpitations. Patient states she is not sure if she is having a cardiac event or if she is just stressed out. States she recently stepped out of her marriage and had a STD check in which everything was negative but she was not tested for syphilis hepatitis or HIV so she is nervous about those. Request these test while she is in the ER.. 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 - Social history:: Smoking status: Patient denies any tobacco usage or history of. ROS: 13:29 Constitutional: Negative for fever, chills, and weight loss, kb 13:29 Cardiovascular: Positive for chest pain, palpitations, 13:29 All other systems are negative, Exam: 13:29 Constitutional: This is a well developed, well nourished patient who is awake, alert, kb and in no acute distress. Head/Face: Normocephalic, atraumatic. ENT: Moist Mucous membranes Cardiovascular: Regular rate Respiratory: Respirations even and unlabored. No increased work of breathing. Talking in full sentences Abdomen/GI: Soft, non-tender. No distention Skin: Warm, dry with normal turgor. Normal color. MS/ Extremity: Pulses equal, no cyanosis. Neurovascular intact. Full, normal range of motion. Neuro: Awake and alert, GCS 15, oriented to person, place, time, and situation. Moves all extremities. Normal gait. 13:29 Constitutional: The patient appears anxious, 13:29 ECG was reviewed by the Attending Physician. Vital Signs: 12:49 BP 133 / 97; Pulse 87; Resp 18; Temp 98.8(O); Pulse Ox 99% ; Weight 86.18 kg; Height 5 db ft. 2 in. ; 14:15 BP 144 / 89; Pulse 76; Resp 18; Pulse Ox 100% on R/A; mb9 15:10 BP 147 / 94; Pulse 76; Resp 18; Pulse Ox 100% on R/A; mb9 12:49 Body Mass Index 34.75 (86.18 kg, 157.48 cm) db MDM: 12:55 Patient medically screened. kb 13:39 Differential diagnosis: abnormal EKG, acute myocardial infarction, anxiety, coronary kb artery disease. Data reviewed: vital signs, nurses notes. 15:37 Scoring Tools HEART Score: Total Score = 0. Counseling: I had a detailed discussion kb with the patient and/or guardian regarding the historical points, exam findings, and any diagnostic results supporting the discharge/admit diagnosis, lab results, radiology results, the need for outpatient follow up, a family practitioner, to return to the emergency department if symptoms worsen or persist or if there are any questions or concerns that arise at home. 05/14 12:59 Order name: CBC with Diff; Complete Time: 13:28 kb 05/14 12:59 Order name: D-Dimer; Complete Time: 13:38 kb 05/14 12:59 Order name: Magnesium; Complete Time: 13:48 kb 05/14 12:59 Order name: Troponin HS; Complete Time: 13:48 kb 05/14 12:59 Order name: CMP; Complete Time: 13:48 kb 05/14 14:58 Order name: Troponin High Sensitivity; Complete Time: 15:36 kb 05/14 12:59 Order name: XRAY Chest (1 view); Complete Time: 14:15 kb 05/14 12:59 Order name: EKG; Complete Time: 13:00 kb 05/14 12:59 Order name: Cardiac monitoring; Complete Time: 13:17 kb 05/14 12:59 Order name: EKG - Nurse/Tech; Complete Time: 13:17 kb 05/14 12:59 Order name: IV Saline Lock; Complete Time: 13:17 kb 05/14 12:59 Order name: Labs collected and sent; Complete Time: 13:17 kb 05/14 12:59 Order name: O2 Per Protocol; Complete Time: 13:17 kb 05/14 12:59 Order name: O2 Sat Monitoring; Complete Time: 13:17 kb EC:29 Rate is 76 beats/min. Rhythm is regular. QRS Hall is Normal. NE interval is normal at kb 140 msec. QRS interval is normal at 92 msec. QT interval is normal at 459 msec. Administered Medications: 13:33 Drug: NS 0.9% IV 1000 ml IV at 1000 ml once Route: IV; Rate: 1000 ml; Site: left mb9 antecubital; 15:10 Follow up: Response: No adverse reaction; IV Status: Completed infusion mb9 Disposition: 14:45 I was immediately available on-site in the Emergency Department for consultation in the ms3 care of the patient. Disposition Summary: 05/14/23 15:40 Discharge Ordered Notes: Location: Home kb Condition: Stable kb Diagnosis - Chest pain, unspecified kb Followup: kb - With: Emergency Department - When: As needed - Reason: Worsening of condition Followup: kb - With: Private Physician - When: 2 - 3 days - Reason: Recheck today's complaints, Continuance of care, Re-evaluation by your physician Discharge Instructions: - Nonspecific Chest Pain, Adult, [id number] kb - Panic Attack, [id number] kb - Discharge Summary Sheet mb9 Forms: - Medication Reconciliation Form kb - Thank You Letter kb - Antibiotic Education kb - Prescription Opioid Use kb - Patient Portal Instructions kb - Leadership Thank You Letter kb - Work release form mb9 Signatures: Dispatcher [employer] EDHawa Page, SURVEILLANCE SENSOR OFFICER-C SURVEILLANCE SENSOR OFFICER-Magdi Torres DO DO ms3 Loraine Patino, RN RN Alicja White RN RN mb9
[2023-05-14 16:03] VITALS: BP 147/94; TEMP 98.8; O2SAT 100
== END ==
LOC: ER 12:42
DX: R07.89 Other chest pain (principal); R00.2 Palpitations
CPT/HCPCS: 36415; 71045; 80053; 83735; 84484; 85025; 85379; 93005; J7030

== ENCOUNTER 2024-05-22 15:25 | Emergency (ER) | payer BC ==
[2024-05-22 16:53] LABS: Specific Gravity 1.005 (1.005-1.030)
[2024-05-22 16:56] LABS: Specific Gravity 1.005 (1.005-1.030); Sqamous Epithelial <5 /HPF (None Seen); Urine Bacteria <20 /HPF (<20); Urine Bilirubin NEGATIVE (Negative); Urine Blood Negative (Negative); Urine Clarity Turbid (Clear); Urine Color Light-Yellow (Yellow); Urine Crystals Unidentified Few /HPF (None Seen); Urine Culture Reflex Order NOT NEEDED; Urine Glucose NEGATIVE (Negative); Urine Ketones 1+ (Negative); Urine Microscopic Reflex YN ORDER UMIC; Urine Nitrite NEGATIVE (Negative); Urine Protein NEGATIVE (Negative); Urine RBC <5 /HPF (None Seen); Urine Urobilinogen Normal (Normal); Urine WBC <5 /HPF (<5); Urine Yeast (Budding) Trace /HPF (None Seen)
[2024-05-22 16:56] LABS: Absolute Basophils 0.1 K/uL (0-0.5); Absolute Eosinophils 0.1 K/uL (0-0.5); Absolute Lymphocytes (CBC) 1.8 K/uL (0.7-4.9); Absolute Monocytes 0.8 K/uL (0.1-1.3); Absolute Neutrophil 9.8 K/uL (1.8-8.0); Basophils % 0.6 % (0-1.3); Eosinophils % 0.8 % (0-4.4); Hematocrit 42.7 % (36.0-45.0); Hemoglobin 14.9 g/dL (12.0-15.0); Lymphocytes % 14.3 % (15.3-44.8); MCH 30.3 pg (27.0-35.0); MCHC 34.9 g/dL (32.0-36.0); MCV 86.9 fL (80-100); MPV 9.2 fL (7.6-11.3); Monocytes % 6.3 % (3.3-12.3); Nucleated Red Blood Cells % 0.1 % (0-0); Platelets 265 thou/uL (152-406); RBC Red Blood Cell Count 4.91 M/uL (3.86-4.86); Red Cell Distribution Width 13.1 % (12.1-15.2)
[2024-05-22 17:10] LABS: Albumin 3.5 g/dL (3.4-5.0); Albumin/Globulin Ratio 0.9 (1.1-1.8); Anion Gap 9.5 mEq/L (5.0-15.0); Bilirubin Direct 0.2 mg/dL (0-0.2); Bilirubin Indirect, Calculated 0.3 mg/dL (0.2-0.8); Bilirubin Total 0.5 mg/dL (0.2-1.0); Magnesium 2.4 mg/dL (1.6-2.4); Potassium 3.5 mEq/L (3.5-5.1); Protein, Total 7.5 g/dL (6.4-8.2); Troponin High Sensitivity 3.3 pg/mL (<58.9)
[2024-05-22 17:12] LABS: Barbiturates NEGATIVE (NEGATIVE); Benzodiazepines NEGATIVE (NEGATIVE); Cocaine NEGATIVE (NEGATIVE); METHAMPHETAM NEGATIVE (NEGATIVE); Methadone NEGATIVE (NEGATIVE); Opiates NEGATIVE (NEGATIVE); Phencyclidine NEGATIVE (NEGATIVE); THC Cannibis NEGATIVE (NEGATIVE)
--- NOTE | 2024-05-22 17:15 | RAD REPORT ---
EXAMINATION: Head Brain Wo Cont CLINICAL INDICATION: Female, 44 years old.Dizziness;Confused TECHNIQUE: Axial CT images from the skull base to the vertex without intravenous contrast. Coronal an d sagittal reformatted images were created from the data set. One or more of the following dose reduction techniques were used: Automated exposure control, adjustment of the mA and/or kV according to patient size, and/or iterative reconstruction. Unless otherwise specified, incidental findings do not require dedicated imaging follow-up. [id number]. COMPARISON: No prior exam. FINDINGS: INTRACRANIAL: No acute intracranial hemorrhage. No hydrocephalus. No mass effect or midline shift. No significant white matter disease.Mild cerebral atrophy. VASCULATURE: No visualized abnormalities in the arteries or dural venous sinuses. SCALP/SKULL: No calvarial fracture identified. No acute soft tissue abnormality. SINUSES: The visualized paranasal sinuses and mastoid air cells are predominantly clear. No significa nt mastoid fluid. IMPRESSION: No acute intracranial abnormality.
--- NOTE | 2024-05-22 17:30 | EDPHYS ---
Physician Documentation [facility] Name: Ching Huang Age: 44 yrs Sex: Female : 1980 Arrival Date: 05/22/2024 Time: 15:25 Bed 16 Private MD: ED Physician Levi Araujo HPI: 05/22 16:49 This 44 yrs old Female presents to ER via Ambulatory with complaints of sp3 Dizziness, Light Headed, Fatigue. 16:49 . sp3 17:26 44-year-old female with history of recent diverticulitis treated with antibiotics sp3 approximate 2 weeks ago now presents with general fatigue lightheadedness and near syncopal episode which is now resolved. She also states she has significant increase anxiety the last few weeks secondary to not knowing what to eat and what not to. She denies any fever, vomiting or diarrhea, headache, chest pain, shortness of breath, LAMP WIRER symptoms, symptoms, or any other signs or symptoms on ROS at this time.. 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 - Infectious Disease History:: Denies. - Social history:: Smoking status: Patient denies any tobacco usage or history of. ROS: 17:27 Constitutional: Negative for fever, chills, and weight loss, Eyes: Negative for injury, sp3 pain, redness, and discharge, ENT: Negative for injury, pain, and discharge, Neck: Negative for injury, pain, and swelling, Respiratory: Negative for shortness of breath, cough, wheezing, and pleuritic chest pain, Abdomen/GI: Negative for abdominal pain, nausea, vomiting, diarrhea, and constipation, Back: Negative for injury and pain, MS/Extremity: Negative for injury and deformity, Skin: Negative for injury, rash, and discoloration, Psych: Negative for depression, anxiety, suicide ideation, homicidal ideation, and hallucinations, Allergy/Immunology: Negative for hives, rash, and allergies, Endocrine: Negative for neck swelling, polydipsia, polyuria, polyphagia, and marked weight changes, Hematologic/Lymphatic: Negative for swollen nodes, abnormal bleeding, and unusual bruising, 17:27 All other systems are negative, Exam: 17:27 Constitutional: This is a well developed, well nourished patient who is awake, alert, sp3 and in no acute distress. Head/Face: Normocephalic, atraumatic. Eyes: Pupils equal round and reactive to light, extra-ocular motions intact. Lids and lashes normal. Conjunctiva and sclera are non-icteric and not injected. Cornea within normal limits. Periorbital areas with no swelling, redness, or edema. ENT: Nares patent. No nasal discharge, no septal abnormalities noted. External auditory canals are clear. Oropharynx with no redness, swelling, or masses, exudates, or evidence of obstruction, uvula midline. Mucous membranes moist. Neck: Trachea midline, no thyromegaly or masses palpated, and no cervical lymphadenopathy. Supple, full range of motion without nuchal rigidity, or vertebral point tenderness. No Meningismus. Chest/axilla: Normal chest wall appearance and motion. Nontender with no deformity. No lesions are appreciated. Cardiovascular: Regular rate and rhythm with a normal S1 and S2. No gallops, murmurs, or rubs. Normal PMI, no JVD. No pulse deficits. Respiratory: Lungs have equal breath sounds bilaterally, clear to auscultation and percussion. No rales, rhonchi or wheezes noted. No increased work of breathing, no retractions or nasal flaring. Abdomen/GI: Soft, non-tender, with normal bowel sounds. No distension or tympany. No guarding or rebound. No evidence of tenderness throughout. Back: No spinal tenderness. No costovertebral tenderness. Full range of motion. Skin: Warm, dry with normal turgor. Normal color with no rashes, no lesions, and no evidence of cellulitis. MS/ Extremity: Pulses equal, no cyanosis. Neurovascular intact. Full, normal range of motion. Neuro: Awake and alert, GCS 15, oriented to person, place, time, and situation. Cranial nerves II-XII grossly intact. Motor strength 5/5 in all extremities. Sensory grossly intact. Cerebellar exam normal. Normal gait. 17:27 Psych: Patient anxious. Denies SI, HI or psychosis.. Vital Signs: 15:59 BP 125 / 85; Pulse 73; Resp 15; Temp 98.1; Pulse Ox 100% on R/A; Weight 83.91 kg; cm10 Height 5 ft. 2 in. ; Pain 0/10; 17:55 BP 133 / 93; Pulse 73; Resp 16; Pulse Ox 100% on R/A; cm10 15:59 Body Mass Index 33.83 (83.91 kg, 157.48 cm) cm10 15:59 Pain Scale: Adult cm10 MDM: 15:37 Medical Screening Exam initiated sp3 17:28 Data reviewed: vital signs, nurses notes, lab test result(s), radiologic studies. ED sp3 course: 44-year-old female with vague symptoms including anxiety, lightheadedness and resolved near syncopal episode. Differential diagnosis includes electrolyte abnormality, dehydration, recurrence of infection, other intracranial pathology, among others. CT scan of the head negative and labs all within normal limits except for WBC of 12 which patient states is her normal. UDS negative. Vital signs remain normal. As long as patient can take p.o., we will safely discharge her home with follow-up to PCP.. 05/22 16:20 Order name: Basic Metabolic Panel; Complete Time: 17: sp3 05/22 16:20 Order name: CBC with Diff; Complete Time: 17: 3 05/22 16:20 Order name: Hepatic Function; Complete Time: 17: sp3 05/22 16:20 Order name: Magnesium; Complete Time: 17: sp3 05/22 16:20 Order name: Test, Urine; Complete Time: 17: 3 05/22 16:20 Order name: Troponin High Sensitivity; Complete Time: 17: sp3 05/22 16:20 Order name: UDS; Complete Time: 17: sp3 05/22 16:20 Order name: Urinalysis w/ reflexes; Complete Time: 17: 3 05/22 16:20 Order name: CT Head Brain wo Cont; Complete Time: 17: sp3 05/22 16:20 Order name: Cardiac monitoring; Complete Time: 17:18 sp3 05/22 16:20 Order name: EKG - Nurse/Tech; Complete Time: 17:18 3 05/22 16:20 Order name: IV Saline Lock; Complete Time: 16:05/22 16:20 Order name: Labs collected and sent; Complete Time: 16:53 sp3 05/22 16:20 Order name: NPO; Complete Time: 16:53 sp3 05/22 16:20 Order name: O2 Per Protocol; Complete Time: 16:53 sp3 05/22 16:20 Order name: O2 Sat Monitoring; Complete Time: 16:53 sp3 05/22 17:29 Order name: PO challenge; Complete Time: 17:55 sp3 Administered Medications: No medications were administered Disposition Summary: 05/22/24 17:30 Discharge Ordered Notes: Location: Home sp3 Condition: Stable sp3 Diagnosis - Near syncope, anxiety sp3 Followup: sp3 - With: Private Physician - When: Upon discharge from the Emergency Department - Reason: If symptoms return, Continuance of care Discharge Instructions: - Discharge Summary Sheet sp3 - Near-Syncope sp3 Forms: - Medication Reconciliation Form sp3 - Antibiotic Education sp3 - Prescription Opioid Use sp3 - Patient Portal Instructions sp3 - Leadership Thank You Letter sp3 Signatures: Dispatcher [employer] EDLevi Goodman MD MD sp3 Emi Sandy RN RN cm10 Corrections: (The following items were deleted from the chart) 16:00 16:00 Home Meds: None; cm10 cm10
--- NOTE | 2024-05-22 17:30 | ER ---
Nurse's Notes [facility] Name: Ching Huang Age: 44 yrs Sex: Female : 1980 Arrival Date: 05/22/2024 Time: 15:25 Bed 16 Private MD: Diagnosis: Near syncope, anxiety Presentation: 05/22 15:59 Chief complaint: Patient states: Dizziness, light headed, and seeing "black dots" onset cm10 1 hr ago. Pt also reports spasms to her mouth arm and leg. Coronavirus screen: Client denies travel out of the [place] in the last 14 days. Ebola Screen: Patient denies travel to an Ebola-affected area in the 21 days before illness onset. Initial Sepsis Screen: Does the patient meet any 2 criteria? No. Patient's initial sepsis screen is negative. Does the patient have a suspected source of infection? No. Patient's initial sepsis screen is negative. Risk Assessment: Do you want to hurt yourself or someone else? Patient reports no desire to harm self or others. 15:59 Method Of Arrival: Ambulatory cm10 15:59 Acuity: MARIALUISA 3 cm10 16:00 Onset of symptoms was May 22, 2024. cm10 Triage Assessment: 16:01 General: Appears in no apparent distress. comfortable, Behavior is calm, cooperative. cm10 Neuro: No deficits noted. Level of Consciousness is awake, alert, obeys commands, Oriented to person, place, time, situation, Appropriate for age. Respiratory: No deficits noted. Airway is patent Respiratory effort is even, unlabored, Respiratory pattern is regular, symmetrical. 17:56 Pain: Denies pain. cm10 ANALYTICS ASSOCIATE: 17:55 unknown cm10 Historical: - Allergies: 16:00 No Known Allergies; cm10 - PMHx: 16:00 Diverticulitis; cm10 - PSHx: 16:00 Left oopherectomy; cm10 - Immunization history:: Adult Immunizations up to date. - Infectious Disease History:: Denies. - Social history:: Smoking status: Patient denies any tobacco usage or history of. Screenin:55 [facility] ED Fall Risk Assessment (Adult) History of falling in the last 3 months, cm10 including since admission No falls in past 3 months (0 pts) Confusion or Disorientation No (0 pts) Intoxicated or Sedated No (0 pts) Impaired Gait No (0 pts) Mobility Assist Device Used No (0 pt) Altered Elimination No (0 pt) Score/Fall Risk Level 0 - 2 = Low Risk Oriented to surroundings, Maintained a safe environment, Hourly rounding (assess needs \\T\\ fall precautionary measures) done. Abuse screen: Denies threats or abuse. Denies injuries from another. Nutritional screening: No deficits noted. Tuberculosis screening: No symptoms or risk factors identified. Assessment: 17:56 Reassessment: Patient appears in no apparent distress at this time. No changes from cm10 previously documented assessment. Patient and/or family updated on plan of care and expected duration. Pain level reassessed. Patient is alert, oriented x 3, equal unlabored respirations, skin warm/dry/pink. Vital Signs: 15:59 BP 125 / 85; Pulse 73; Resp 15; Temp 98.1; Pulse Ox 100% on R/A; Weight 83.91 kg; cm10 Height 5 ft. 2 in. ; Pain 0/10; 17:55 BP 133 / 93; Pulse 73; Resp 16; Pulse Ox 100% on R/A; cm10 15:59 Body Mass Index 33.83 (83.91 kg, 157.48 cm) cm10 15:59 Pain Scale: Adult cm10 ED Course: 15:29 Patient arrived in ED. cj3 15:30 Levi Araujo MD is Attending Physician. sp3 16:00 Triage completed. cm10 16:01 Arm band placed on right wrist. Patient placed in an exam room, on a stretcher. cm10 16:32 Yvette Molina, RN is Primary Nurse. iw 16:42 Initial lab(s) drawn, by me, sent to lab. Inserted saline lock: 20 gauge in left iw antecubital area, using aseptic technique. Blood collected. Flushed with 10 mL NS. 16:57 CT Head Brain wo Cont In Process Unspecified. EDMS 17:56 Patient has correct armband on for positive identification. Provided Education on: cm10 Follow-up instructions. 17:56 No provider procedures requiring assistance completed. IV discontinued, intact, cm10 bleeding controlled, No redness/swelling at site. Pressure dressing applied. Administered Medications: No medications were administered Medication: 17:55 VIS not applicable for this client. cm10 Outcome: 17:30 Discharge ordered by MD. sp3 17:56 Discharged to home ambulatory, 10 17:56 Condition: good 17:56 Discharge instructions given to patient, Instructed on discharge instructions, follow up and referral plans. Demonstrated understanding of instructions, follow-up care, 17:56 Patient left the ED. cm10 Signatures: Dispatcher [employer] Yvette Keller, Lvei Paulino RN, MD MD sp3 Emi Sandy RN RN cm10 Johnson, Celeste 3 Corrections: (The following items were deleted from the chart) 16:00 16:00 Home Meds: None; cm10 cm10
[2024-05-22 18:16] VITALS: TEMP 98.1; O2SAT 100
[2024-05-22 18:18] VITALS: BP 133/93
--- NOTE | 2024-05-25 12:11 | EKG ---
Test Date: 2024-05-22 Test Time: 17:15:36 Superintendent Pipelines: KASI MEASUREMENT RESULTS: Intervals: Rate: 61 MD: 132 QRSD: 80 QT: 444 QTc: 446 [place]: P: 34 MD: 132 QRS: 35 T: 21 INTERPRETIVE STATEMENTS: Normal sinus rhythm Normal ECG Compared to ECG 05/14/2023 13:05:55 No significant changes Electronically Signed On 05-25-24 12:05:30 QUALITY ASSURANCE SUPERVISOR BODY by Francesco Ennis
== END 2024-05-22 17:56 | disposition home or self-care (01) ==
LOC: ER 15:25
DX: F41.9 Anxiety disorder, unspecified (principal); R53.83 Other fatigue
CPT/HCPCS: 36415; 70450; 80048; 80076; 80307; 81001; 81025; 83735; 84484; 85025; 93005; 99283

== ENCOUNTER 2025-01-13 08:16 | Emergency (ER) | payer BC ==
[2025-01-13] MEDS ORDERED: ASPIRIN 81 MG CHEWABLE TABLET ONE (08:49)
[2025-01-13 09:25] LABS: ALT/SGPT 28 U/L (13-56); AST/SGOT 13 U/L (15-37); Albumin 3.4 g/dL (3.4-5.0); Albumin/Globulin Ratio 0.9 (1.1-1.8); Alkaline Phosphatase 49 U/L (45-117); Anion Gap 6.9 mEq/L (5.0-15.0); BUN Blood Urea Nitrogen 13 mg/dL (7-18); Globulin 3.8 g/dL (2.3-3.5); Glucose Level 107 mg/dL (74-106); Magnesium 2.0 mg/dL (1.6-2.4); NT PRO-BNP 82 pg/mL (<125); Potassium 3.9 mEq/L (3.5-5.1); Troponin High Sensitivity 5.3 pg/mL (<58.9)
[2025-01-13 09:28] LABS: Hematocrit 43.3 % (36.0-45.0); Hemoglobin 15.0 g/dL (12.0-15.0); MCH 29.8 pg (27.0-35.0); MCHC 34.6 g/dL (32.0-36.0); MCV 86.0 fL (80-100); MPV 9.3 fL (7.6-11.3); RBC Red Blood Cell Count 5.03 M/uL (3.86-4.86); White Blood Count 9.30 thou/uL (4.3-10.9)
[2025-01-13 09:29] LABS: Absolute Lymphocytes (CBC) 1.8 K/uL (0.7-4.9); Nucleated RBC Absolute Count 0.0 (0-0); Nucleated Red Blood Cells % 0.1 % (0-0)
[2025-01-13 09:34] LABS: Bilirubin Indirect, Calculated 0.2 mg/dL (0.2-0.8)
--- NOTE | 2025-01-13 09:49 | RAD REPORT ---
EXAM: Chest Single View HISTORY: 44 years Female CHEST PAIN COMPARISON: 05/14/2023 FINDINGS: LUNGS/PLEURA: The lungs are clear. No pleural effusions or pneumothorax. No pulmonary edema. Low lung volumes. CARDIAC/MEDIASTINUM: The cardiac silhouette is within normal limits. UPPER ABDOMEN: No significant abnormality. BONES: No acute abnormality. LINES/TUBES/OTHER: N/A IMPRESSION: No evidence of acute cardiopulmonary disease.
[2025-01-13 09:50] LABS: PT Prothrombin Time 13.3 SECONDS (10-13.0); Protime INR 1.18
--- NOTE | 2025-01-13 09:53 | ER ---
Nurse's Notes [facility] Name: Ching Huang Age: 44 yrs Sex: Female : 1980 Arrival Date: 01/13/2025 Time: 08:16 Bed 3 Private MD: Diagnosis: Chest pain, unspecified Presentation: 01/13 08:28 Chief complaint: Patient states: LEFT "DULL" CP INTERMITTENT x3 DAYS, WORSE AT NIGHT. bp Coronavirus screen: At this time, the client does not indicate any symptoms associated with coronavirus-19. Ebola Screen: No symptoms or risks identified at this time. Initial Sepsis Screen: Does the patient meet any 2 criteria? No. Patient's initial sepsis screen is negative. Does the patient have a suspected source of infection? No. Patient's initial sepsis screen is negative. Risk Assessment: Do you want to hurt yourself or someone else? Patient reports no desire to harm self or others. Onset of symptoms is unknown. 08:28 Method Of Arrival: Ambulatory bp 08:28 Acuity: MARIALUISA 3 bp Triage Assessment: 08:29 General: Appears in no apparent distress. Behavior is cooperative, appropriate for age, bp anxious. Pain: Complains of pain in chest. EENT: No deficits noted. Neuro: No deficits noted. Cardiovascular: Rhythm is sinus rhythm. Respiratory: No deficits noted. GI: No signs and/or symptoms were reported involving the gastrointestinal system. : No signs and/or symptoms were reported regarding the genitourinary system. Derm: No deficits noted. Musculoskeletal: No deficits noted. EFFICIENCY ANALYST: 08:56 unknown zm Historical: - Allergies: 08:29 No Known Allergies; bp - PMHx: 08:29 Diverticulitis; bp - PSHx: 08:29 Left oopherectomy; bp - Immunization history:: Adult Immunizations up to date. - Infectious Disease History:: Denies. - Social history:: Smoking status: Patient denies any tobacco usage or history of. Screenin:54 [facility] ED Fall Risk Assessment (Adult) History of falling in the last 3 months, zm including since admission No falls in past 3 months (0 pts) Confusion or Disorientation No (0 pts) Intoxicated or Sedated No (0 pts) Impaired Gait No (0 pts) Mobility Assist Device Used No (0 pt) Altered Elimination No (0 pt) Score/Fall Risk Level 0 - 2 = Low Risk Oriented to surroundings, Maintained a safe environment, Educated pt \\T\\ family on fall prevention, incl call for assistance when getting out of bed, Assessed \\T\\ reinforced patient's understanding of fall precautions, Hourly rounding (assess needs \\T\\ fall precautionary measures) done, Used ambulatory aids as needed (educated on \\T\\ assisted with), Used gait belt as appropriate. Abuse screen: Denies threats or abuse. Denies injuries from another. Nutritional screening: No deficits noted. Tuberculosis screening: No symptoms or risk factors identified. Assessment: 08:53 General: Appears in no apparent distress. Behavior is calm, cooperative, appropriate km10 for age. Pain: Complains of pain in chest Pain does not radiate. Pain Quality of pain is described as aching, dull, Pain began 2-3 days ago. Is intermittent. Neuro: Level of Consciousness is awake, alert, obeys commands, Oriented to person, place, time, situation, Appropriate for age Gait is steady. Cardiovascular: Reports chest pain, Denies shortness of breath, Capillary refill < 3 seconds Patient's skin is warm and dry. Respiratory: Airway is patent Respiratory effort is even, unlabored. 10:05 Reassessment: Patient appears in no apparent distress at this time. Patient and/or zm family updated on plan of care and expected duration. Pain level reassessed. Patient is alert, oriented x 3, equal unlabored respirations, skin warm/dry/pink. Patient denies pain at this time. Patient states feeling better. Patient states symptoms have improved. Vital Signs: 08:28 BP 152 / 99; Pulse 77; Resp 16; Temp 98; Pulse Ox 100% ; bp 10:06 BP 136 / 96; Pulse 60; Resp 18; Temp 98.1; Pulse Ox 100% on R/A; Pain 0/10; zm 10:06 Pain Scale: Adult zm Jana Coma Score: 10:06 Eye Response: spontaneous(4). Motor Response: obeys commands(6). Verbal Response: zm oriented(5). Total: 15. ED Course: 08:20 Patient arrived in ED. cj3 08:20 Kathy Lyon PA-C is PHCP. sb4 08:20 Master Funes MD is Attending Physician. sb4 08:25 Patient has correct armband on for positive identification. Placed in gown. Bed in low zm position. Call light in reach. Side rails up X 1. Provided Education on: call light use. Client placed on continuous cardiac and pulse oximetry monitoring. NIBP monitoring applied. nuclear monitoring technician on. 08:25 Door closed. Noise minimized. Lights dimmed. Warm blanket given. Verbal reassurance zm given. 08:29 Triage completed. bp 08:29 Arm band placed on. bp 08:30 EKG done, by ED staff, reviewed by Becka Sandy RN. zm 08:30 Initial lab(s) drawn, by oh, sent to lab. Inserted saline lock: 20 gauge in left zm antecubital area, using aseptic technique. Blood collected. Flushed with 10 mL NS. 08:37 Becka Sandy, RN is Primary Nurse. zm 08:44 Radiology exam delayed due to IV insertion attempt and/or patient not having az appropriate IV at this time. 08:52 TSH Sent. km10 08:52 Test, Serum Sent. km10 08:53 Troponin HS Sent. km10 08:53 PT-INR Sent. km10 08:53 NT PRO-BNP Sent. km10 08:53 Magnesium Sent. km10 08:53 LFT's Sent. km10 08:53 CBC with Diff Sent. km10 08:53 Basic Metabolic Panel Sent. km10 08:56 Patient maintains SpO2 saturation greater than 95% on room air. zm 09:31 XRAY Chest (1 view) In Process Unspecified. EDMS 10:07 No provider procedures requiring assistance completed. IV discontinued, intact, zm bleeding controlled, No redness/swelling at site. Pressure dressing applied. Administered Medications: 08:53 Drug: Aspirin PO Chewable Tablet 324 mg PO once; 81 mg tablets x 4 Route: PO; km10 10:07 Follow up: Response: No adverse reaction zm Medication: 08:56 VIS not applicable for this client. zm Outcome: 09:53 Discharge ordered by . sb4 10:07 Discharged to home ambulatory, zm 10:07 Condition: stable 10:07 Discharge instructions given to patient, Instructed on discharge instructions, follow up and referral plans. safety practices, Demonstrated understanding of instructions, follow-up care, 10:11 Patient left the ED. zm Signatures: Dispatcher [employer] EDGA Apolinar Frye RN RN Alexandria Hunter Zaina, RN RN Kathy Elder PA-C PATerese sb4 Bridgette Anne cj3 Callie Lima RN RN km10
--- NOTE | 2025-01-13 09:53 | EDPHYS ---
Physician Documentation [facility] Name: Ching Huang Age: 44 yrs Sex: Female : 1980 Arrival Date: 01/13/2025 Time: 08:16 Bed 3 Private MD: ED Physician Master Funes HPI: 01/13 08:29 This 44 yrs old Female presents to ER via Unassigned with complaints of Chest sb4 Pain - SINCE YESTERDAY MORNING. 08:29 patient reports intermittent chest pain for about 3 days now. reports it in the left sb4 chest wall, sometimes in the left lateral chest wall. no associated symptoms - denies nausea, dizziness, sob, radiation of pain. describes it as a dull ache. states it's worse at night but cannot identify any other pattern. denies any cardiac history - no HTN, DM, COPD. Does not smoke. No significant family history. SHIPPING ASSISTANT: 08:56 unknown zm Historical: - Allergies: 08:29 No Known Allergies; bp - PMHx: 08:29 Diverticulitis; bp - PSHx: 08:29 Left oopherectomy; bp - Immunization history:: Adult Immunizations up to date. - Infectious Disease History:: Denies. - Social history:: Smoking status: Patient denies any tobacco usage or history of. ROS: 08:29 Constitutional: Negative for fever, chills, and weight loss, sb4 08:29 Cardiovascular: Positive for chest pain, 08:29 All other systems are negative, Exam: 08:29 Constitutional: This is a well developed, well nourished patient who is awake, alert, sb4 and in no acute distress. Head/Face: Normocephalic, atraumatic. Eyes: Extra-ocular motions intact. Periorbital areas with no swelling, redness, or edema. ENT: Mucous membranes moist. Cardiovascular: Regular rate and rhythm with a normal S1 and S2. Respiratory: No increased work of breathing, no retractions or nasal flaring. Abdomen/GI: Soft, non-tender, no distension. Skin: Warm, dry with normal turgor. Normal color with no rashes, no lesions, and no evidence of cellulitis. Vital Signs: 08:28 BP 152 / 99; Pulse 77; Resp 16; Temp 98; Pulse Ox 100% ; bp 10:06 BP 136 / 96; Pulse 60; Resp 18; Temp 98.1; Pulse Ox 100% on R/A; Pain 0/10; zm 10:06 Pain Scale: Adult zm Jana Coma Score: 10:06 Eye Response: spontaneous(4). Motor Response: obeys commands(6). Verbal Response: zm oriented(5). Total: 15. MDM: 08:21 Medical Screening Exam initiated sb4 08:31 Differential diagnosis: chest wall pain, anxiety, angina, GERD, gastritis, abnormal EKG.sb4 09:45 Data reviewed: vital signs, nurses notes, lab test result(s), EKG, radiologic studies, sb4 and as a result, I will discharge patient. Scoring Tools HEART Score: History: ECG: Age: Risk Factors: No Risk Factors Known (0), Troponin: Total Score = 0. Counseling: I had a detailed discussion with the patient and/or guardian regarding the historical points, exam findings, and any diagnostic results supporting the discharge/admit diagnosis, the presence of at least one elevated blood pressure reading (>120/80) during this emergency department visit, lab results, radiology results, the need for outpatient follow up, for definitive care, to return to the emergency department if symptoms worsen or persist or if there are any questions or concerns that arise at home. 01/13 08:27 Order name: Basic Metabolic Panel; Complete Time: 09:35 sb4 01/13 08:27 Order name: CBC with Diff; Complete Time: 09:42 sb4 01/13 08:27 Order name: LFT's; Complete Time: 09:35 sb4 01/13 08:27 Order name: Magnesium; Complete Time: 09:35 sb4 01/13 08:27 Order name: NT PRO-BNP; Complete Time: 09:35 sb4 01/13 08:27 Order name: PT-INR; Complete Time: 09:51 sb4 01/13 08:27 Order name: Troponin HS; Complete Time: 09:35 sb4 01/13 08:27 Order name: Test, Serum; Complete Time: 09:35 sb4 01/13 08:32 Order name: TSH; Complete Time: 09:39 sb4 01/13 08:27 Order name: XRAY Chest (1 view); Complete Time: 09:50 sb4 01/13 08:27 Order name: Cardiac monitoring; Complete Time: 08:47 sb4 01/13 08:27 Order name: EKG - Nurse/Tech; Complete Time: 08:47 sb4 01/13 08:27 Order name: IV Saline Lock; Complete Time: :52 sb4 01/13 08:27 Order name: Labs collected and sent; Complete Time: :52 sb4 01/13 08:27 Order name: O2 Per Protocol; Complete Time: sb4 01/13 08:27 Order name: O2 Sat Monitoring; Complete Time: : sb4 EC:56 Rate is 65 beats/min. Rhythm is regular, Normal Sinus Rhythm. MO interval is normal at sb4 136 msec. QRS interval is normal at 82 msec. QT interval is normal at 430 msec. No Q waves. T waves are Normal. No ST changes noted. Clinical impression: Normal ECG. Interpreted by me. Reviewed by me. Administered Medications: : Drug: Aspirin PO Chewable Tablet 324 mg PO once; 81 mg tablets x 4 Route: PO; km10 10:07 Follow up: Response: No adverse reaction zm Disposition Summary: 01/13/25 09:53 Discharge Ordered Notes: Location: Home sb4 Problem: an ongoing problem sb4 Symptoms: have improved sb4 Condition: Stable sb4 Diagnosis - Chest pain, unspecified sb4 Followup: sb4 - With: Emergency Department - When: As needed - Reason: Trouble breathing, Worsening of condition Discharge Instructions: - Discharge Summary Sheet sb4 - Nonspecific Chest Pain, Adult, [id number] sb4 Forms: - Patient Portal Instructions sb4 - Leadership Thank You Letter sb4 Signatures: Dispatcher [employer] Apolinar Huff, RN RN Kathy Saldivar PA-C PATerese sb4 Callie Lima RN RN km10 Becka Sandy RN zm
[2025-01-13 11:57] VITALS: BP 152/99; TEMP 98; O2SAT 100
== END 2025-01-13 10:11 | disposition home or self-care (01) ==
LOC: ER 08:16
DX: R07.9 Chest pain, unspecified (principal)
CPT/HCPCS: 36415; 71045; 80048; 80076; 83735; 83880; 84443; 84484; 84703; 85025; 85610; 93005; 99284